=== PATIENT | female | born 2000 | race Caucasian/White ===

== ENCOUNTER 2023-05-20 01:59 | Emergency (ER) | payer MEDICAID ==
[~2023-05-20] VITALS: Ht 162.6 cm; Wt 59.9 kg
[2023-05-20 02:22] VITALS: BP 105/49; TEMP 98.2; O2SAT 100
== END 2023-05-20 02:41 | disposition home or self-care (01) ==
LOC: ER 02:09
DX: Z71.1 Person with feared health complaint in whom no diagnosis is made (principal)